=== PATIENT | female | born 1985 | race Caucasian/White ===

== ENCOUNTER 2021-12-15 08:21 | Day surgery (SDC) | payer OTHER ==
[~2021-12-15] VITALS: Ht 165.1 cm; Wt 65.4 kg
[2021-12-15 08:55] VITALS: BP 112/66; PULSE 63; TEMP 97
[2021-12-15] MEDS ORDERED: MAGNESIUM CITR100 MG PO (09:00)
[2021-12-15 10:00] VITALS: BP 98/55; PULSE 68; TEMP 98
--- NOTE | 2021-12-15 10:00 | NUR ---
PT TO BAY 7 VIA CART FROM ENDO ROOM, WALKED TO CHAIR, IN ROOM. CALL LIGHT IN REACH, TAKES SNACK, NO C/O
[2021-12-15 10:15] VITALS: BP 91/68; PULSE 62
[2021-12-15 10:30] VITALS: BP 108/64; PULSE 62
--- NOTE | 2021-12-15 10:30 | NUR ---
HERE TO SEE PT AND VISIT WITH HER AND . IV D'CD INTACT, PT UP AND DRESSED, REVIEWED DISCHARGE INST. WITH PT ON PROCEDURE AND PRECAUTIONS AND RESTRICTIONS WITH VERBAL UNDERSGTANDING. PT DISCHARHGED HOME AT 1045 VIA W/C [facility] CAR
== END 2021-12-15 10:45 | disposition home or self-care (01) ==
LOC: SDCO 08:21
DX: R10.9 Unspecified abdominal pain (principal)
CPT/HCPCS: J2704; J7120